=== PATIENT | male | born 1960 | race Caucasian/White ===

== ENCOUNTER 2022-03-12 16:43 | Outpatient (CLI) | payer OTHER | END 2022-03-12 16:44 | disposition home or self-care (01) | LOC: LAB.N 16:43 | PROVIDERS: ATTEND Internal Medicine Rheumatology | DX: M45.9 Ankylosing spondylitis of unspecified sites in spine (principal) | CPT/HCPCS: 36415; 85651; 86140 ==

== ENCOUNTER 2022-03-16 07:20 | Outpatient (CLI) | payer OTHER ==
--- NOTE | 2022-03-16 09:14 | XRAY Report ---
PROCEDURE: Pelvis 1 View INDICATIONS: HIP PX TECHNIQUE: 1 view(s) of the pelvis acquired. COMPARISON: None. FINDINGS: Bones: No fractures or dislocations. 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 No suspicious bony lesion s. Soft tissues: Visualized bowel gas pattern is normal. No suspicious soft tissue calcifications. IMPRESSION: 1. Mild symmetric femoral acetabular joint degeneration. 2. 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 Reviewed by: Yecenia Piña MD on 03/16/2022 9:13 AM PDT Approved by: Yecenia Piña MD on 03/16/2022 9:13 AM PDT Station ID: [id number]
--- NOTE | 2022-03-16 09:17 | XRAY Report ---
PROCEDURE: Lumbar Spine 2 View INDICATIONS: LOW BACK PX TECHNIQUE: 2 views of the lumbar spine were acquired. COMPARISON: None. FINDINGS: Bones: 5 [id number] vertebrae are present. Trace retrolisthesis L1 on 2 and L2 on 3. Calcifica tion within the disc space of T12-L1 and L1-2 with smooth anterior bridging osteophytosis. There are prominent anterolateral endplate osteophytes L2-3 and L3-4. Disc spaces are maintained. There is mild facet sclerosis from L3 through S1. Possible partial ankylosis of the left sacroiliac joint (less di stinctly seen compared to the right). No vertebral body compression fractures. No suspicious bony le sions. Soft tissues: Overlying bowel gas pattern is normal. No suspicious soft tissue calcifications. IMPRESSION: 1. Disc calcification T12-L1 and L1-2. 2. Trace retrolisthesis in the upper lumbar spine. 3. 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 Reviewed by: Yecenia Piña MD on 03/16/2022 9:16 AM PDT Approved by: Yecenia Piña MD on 03/16/2022 9:16 AM PDT Station ID: [id number]
== END 2022-03-16 07:21 | disposition home or self-care (01) ==
LOC: DI.N 07:20
PROVIDERS: ATTEND Internal Medicine Rheumatology
DX: M51.85 Other intervertebral disc disorders, thoracolumbar region (principal); M51.86 Other intervertebral disc disorders, lumbar region; M43.16 Spondylolisthesis, lumbar region; M43.25 Fusion of spine, thoracolumbar region; M43.26 Fusion of spine, lumbar region